=== PATIENT | male | born 1960 ===

== ENCOUNTER 2018-07-05 12:36 | Outpatient (CLI) | payer OTHER ==
[~2018-07-05] VITALS: Ht 167.6 cm; Wt 99.8 kg
== END 2018-07-05 13:00 | disposition home or self-care (01) ==
LOC: OFIC 805 12:36
DX: H90.3 Sensorineural hearing loss, bilateral (principal); M62.830 Muscle spasm of back; H61.23 Impacted cerumen, bilateral